=== PATIENT | female | born 1965 | race Hispanic/Latino ===

== ENCOUNTER 2020-12-12 06:35 | Day surgery (SDC) | payer OTHER ==
[2020-12-10 13:34] VITALS: BMI 48.4
[2020-12-12] MEDS ORDERED: Lidocaine 1% PF 5 ML VIAL ONE (08:21)
[2020-12-12] MEDS ORDERED: PROPOFOL 40 ML ONE (08:21)
[2020-12-12] MEDS ORDERED: PROPOFOL 20 ML ONE (08:58)
== END 2020-12-12 10:20 | disposition home or self-care (01) ==
LOC: CSHSDC 06:35
PROVIDERS: ATTEND Internal Medicine Gastroenterology
PROC: 0DJD8ZZ Inspection of Lower Intestinal Tract, Via Natural or Artificial Opening Endoscopic (ICD-10-PCS; principal; 2020-12-12)
DX: K29.50 Unspecified chronic gastritis without bleeding (principal); B96.81 Helicobacter pylori [H. pylori] as the cause of diseases classified elsewhere; D50.9 Iron deficiency anemia, unspecified; K64.9 Unspecified hemorrhoids; I10 Essential (primary) hypertension; E78.5 Hyperlipidemia, unspecified; E11.9 Type 2 diabetes mellitus without complications; F32.9 Major depressive disorder, single episode, unspecified; Z90.49 Acquired absence of other specified parts of digestive tract; Z90.710 Acquired absence of both cervix and uterus
CPT/HCPCS: 88305; 88342; J2704